=== PATIENT | male | born 1960 | race Caucasian/White ===

== ENCOUNTER 2023-03-26 07:14 | Outpatient (CLI) | payer OTHER, SELFPAY | END 2023-03-26 07:15 | disposition home or self-care (01) | LOC: INJ CL 07:14 | PROVIDERS: PCP Family Medicine; Visit Provider Family Medicine | DX: M16.11 Unilateral primary osteoarthritis, right hip (principal); M25.551 Pain in right hip | CPT/HCPCS: 20610; 77002; J0702; Q9966 ==

== ENCOUNTER 2023-04-27 12:50 | Outpatient (CLI) | payer OTHER, SELFPAY | END 2023-04-27 12:51 | disposition home or self-care (01) | LOC: INJ CL 12:50 | PROVIDERS: PCP Family Medicine; Visit Provider Family Medicine | DX: M16.11 Unilateral primary osteoarthritis, right hip (principal); M25.551 Pain in right hip | CPT/HCPCS: 20610; 77002; J0702; Q9966 ==

== ENCOUNTER 2023-07-21 13:47 | Outpatient (RCR) | payer OTHER, SELFPAY | END 2023-08-19 16:42 | disposition home or self-care (01) | PROVIDERS: PCP Family Medicine; Visit Provider Orthopaedic Surgery | DX: M16.11 Unilateral primary osteoarthritis, right hip (principal); Z51.89 Encounter for other specified aftercare | CPT/HCPCS: 97161 ==

== ENCOUNTER 2023-08-03 09:48 | Day surgery (SDC) | payer OTHER, SELFPAY ==
[2023-08-03] VITALS (24 sets, daily range): BP systolic 103–135; BP diastolic 42–84; PULSE 43–86; RESP 14–18; TEMP 35.9–36.9; O2SAT 84–100; BMI 40.2
[2023-08-03] MEDS: LACTATED RINGERS 1000 ML 1,000 ML 100 ML IV ×2 (09:00→12:54)
[2023-08-03] MEDS: ACETAMINOPHEN 500 MG TABLET 1000 MG PO ×3 (10:33→21:53)
[2023-08-03] MEDS: SODIUM CHLORIDE 0.9 % (FLUSH) 10 ML SYRINGE IVF (10:33)
[2023-08-03] MEDS: CELECOXIB 200 MG CAPSULE PO (10:33)
[2023-08-03] MEDS: OXYCODONE (CR) 10 MG TAB.ER.12H PO (10:33)
--- NOTE | 2023-08-03 10:50 | SUR.PREOP ---
TIME?OUT:?1136 PT/RN/MDA?VERIFICATION?OF?SURGICAL?SITE Right Hip,?PROCEDURE Nerve Block,?AND?CONSENT OBTAINED?PRIOR?TO?INVASIVE?PROCEDURE.
[2023-08-03] MEDS: MIDAZOLAM HCL 1 MG/ML inj IVP (11:37)
[2023-08-03] MEDS: fentaNYL 100 MCG/2 ML inj IVP (11:37)
[2023-08-03] MEDS: CEFAZOLIN 2 GM INJ IVP (12:09)
[2023-08-03] MEDS: TRANEXAMIC ACID 100 MG/ML INJ 1000 MG IV (12:11)
--- NOTE | 2023-08-03 12:15 | CRLHL7_ITS ---
For Patients: As a result of the Cures Act, medical imaging exams and procedure reports are released immediately into your electronic medical record. You may view this report before your referring provider. If you have questions, please contact your health care provider. Fluoroscopy was provided intraoperatively. Two spot films acquired demonstrating an intact right total hip arthroplasty. 67 seconds fluoroscopy time was utilized by the surgical service. Dictated by Timothy Nails MD @ 08/05/2023 5:29:55 AM (Electronically Signed)
--- NOTE | 2023-08-03 12:40 | W.PM.NB ---
Nerve Block Nerve Block Time Seen by Provider: 11:40 Date Seen: 08/03/23 Type of block requested by surgeon for post-operative analgesia: NILSON/LFCN Side: right Time out performed: Yes Verification of patient name: Yes Verification of date of : Yes Site marking: site marked Name of person performing procedure: Umair Continuous monitoring Was continuous monitoring of O2 sat, B/P, playground monitor, recorded every 15 minutes?: Yes Procedure Checklist: sterile prep, needles and gloves Ultrasound guided. Images saved: Yes Medications given in 5ml increments after negative aspiration: Ropivicaine %: 0.5 mL: 30 Needle gauge: 20 Decadron (mg): 10 Precedex (mcg): 25 Patient tolerated procedure well: Yes Additional comments: Needle noted below psoas tendon needle noted adjacent to LFCN Block Charges Block Charge (with Pro Fee): Other Periph Nerve Block Use of Ultrasound Machine for Block: Yes- US Guidance/pain block
--- NOTE | 2023-08-03 12:40 | W.ANESCHARGE ---
Anesthesia Charges Start Date/Time Anesthesia Start Date: 08/03/23 Anesthesia Start Time: 11:46 Stop Date/Time Anesthesia Stop Date: 08/03/23 Anesthesia Stop Time: 14:21
--- NOTE | 2023-08-03 13:33 | CRLHL7_ITS ---
For Patients: As a result of the Cures Act, medical imaging exams and procedure reports are released immediately into your electronic medical record. You may view this report before your referring provider. If you have questions, please contact your health care provider. INDICATION: Post operative right total hip arthroplasty TECHNIQUE: Pelvis radiograph, Hip radiograph 2 views right COMPARISON: None FINDINGS: Bone: No acute fractures or aggressive bone lesions are identified. The right iliac crest is partially excluded. Joint: A right hip arthroplasty is noted. The visualized sacroiliac joints are unremarkable in appearance. The pubic symphysis is normal in appearance. Soft tissue: Lateral subcutaneous gas and joint gas are present from recent surgery. The visualized bowel gas pattern of the pelvis is unremarkable in appearance. No radiopaque foreign bodies are seen. IMPRESSION: 1. There is an unremarkable postoperative appearance of the hip arthroplasty. Dictated by: Michael Meek MD @ 08/05/2023 13:46:47 (Electronically Signed)
--- NOTE | 2023-08-03 13:35 | P.ORPRC_ITS ---
Procedure Note Date of procedure: 08/03/23 Procedure: PREOPERATIVE DIAGNOSIS: Right hip osteoarthritis POSTOPERATIVE DIAGNOSIS: Right hip osteoarthritis NAME OF OPERATION: Right total hip arthroplasty SURGEON: Naseem Dozier MD SHAPING MACHINE TENDER: Geena Mclaughlin PA-C, ALHAJI Hutchins IMPLANTS: 1. [employer] # 56 sector ingrowth cup 2. 36 x 56 +4 neutral polyethylene 3. Actis # 5 standard collared ingrowth stem 4. 36 + 8.5 ceramic femoral head ANESTHESIA: General ESTIMATED BLOOD LOSS: 1200 cc COMPLICATIONS: None SPECIMENS: None DRAINS: None PREOPERATIVE ANTIBIOTICS: Ancef 3 grams INDICATIONS: The patient is a 63-year-old with a longstanding history of severe, unrelenting right hip pain secondary to end-stage right hip osteoarthritis. Despite appropriate nonoperative management, including activity modification, use of an assist device, anti-inflammatories, [id number] pain medication, physical therapy and injections, they continue to have pain and disability. Operative intervention was offered. The risks, benefits and expected outcomes were discussed in detail. These included but were not limited to: Infection, bleeding, injury to blood vessel or nerve, venous thromboembolism. All questions were answered to their satisfaction. Use of an funeral director's assistant was necessary throughout the case for patient positioning and safety, soft tissue retraction and closure. PROCEDURE: The patient was placed supine on the [place] table. General anesthesia was administered. The funeral director's assistant made sure the patient was properly positioned. The right hip was prepped and draped in the usual sterile fashion. The image intensifier was brought in for a perfect AP pelvis and a perfect double tear drop AP view of each hip which were used for intraoperative templating with our fluoroscopic guide. An oblique incision was made 3 cm distal and 3 cm lateral to the anterior superior iliac spine. The funeral director's assistant retracted the soft tissues to protect them. Subcutaneous dissection was taken with electrocautery to the superficial fascia. The fascia was divided in line with the incision. Blunt dissection was carried medially to the tensor fascia kassi and sartorius interval. Deep dissection was carried with electrocautery. The circumflex vessels were cauterized and divided. The capsule was exposed and then divided in a T- fashion, tagged with #1 Ethibond sutures. Retractors were placed in the joint, held by the funeral director's assistant. The corkscrew was placed in the femoral head. The neck cut was made in the subcapital region. We made a second neck cut more distal. The napkin ring of bone was removed. The femoral head was removed intact. Acetabular retractors were placed, held by the funeral director's assistant. The labrum was sharply debrided. The capsule was released. The 43 mm reamer was used to the true medial wall. We then enlarged in 2 mm increments using the image intensifier for our reamer placement. We impacted the cup which had excellent purchase. We placed the hole eliminator and the polyethylene. Attention was then turned to the proximal femur. The limb was placed in 140 degrees of external rotation, maximum extension and adduction. A significant amount of time was spent releasing the capsule to allow us to deliver the femur into the wound and complete the femoral side safely. Retractors were held by the funeral director's assistant throughout the femoral preparation. The box truck driver and canal finder were used. Broaches were used to a stable size. The calcar reamer was used. Trial components were placed. The hip was reduced and was found to be stable with appropriate soft tissue tension. Length and offset had been nicely restored using the image intensifier and our fluoroscopic guide. Trial components were removed. The stem was impacted. We placed the femoral head. Again, the hip was reduced and was found to be stable with appropriate soft tissue tension. Length and offset had been nicely restored. The funeral director's assistant did a three minute dilute Betadine solution soak. The funeral director's assistant irrigated the wound with 3 liters of normal saline via pulse lavage. The funeral director's assistant repaired the anterior capsule with a #1 Vicryl and our previously placed Ethibond sutures. The funeral director's assistant closed the fascia over the tensor fascia kassi with a #1 PDO Stratafix, subcutaneous tissues with 2-0 Vicryl, skin with a running 3-0 Stratafix and glue. A dry dressing was applied by the funeral director's assistant. Sponge and needle counts were correct x 2. The patient tolerated the procedure well; there were no apparent complications. They were awakened and extubated in the operating room, sent to the Post-Anesthesia Care Unit in satisfactory condition. PLAN: 1. The patient will be mobilized with physical therapy, weight-bearing as tolerates 2. Xarelto x 5 days then aspirin x 30 days will be used for DVT prophylaxis 3. The patient will be discharged once medically appropriate
[2023-08-03] MEDS: fentaNYL 100 MCG/2 ML inj 50 MCG IVP ×2 (14:25→14:33)
--- NOTE | 2023-08-03 14:26 | W.ANESCHARGE ---
Anesthesia Charges Start Date/Time Anesthesia Start Date: 08/03/23 Anesthesia Start Time: 11:46 Stop Date/Time Anesthesia Stop Date: 08/03/23 Anesthesia Stop Time: 14:21
[2023-08-03] MEDS: HYDROmorphone 0.5 mg/0.5 ml inj IVP ×2 (15:20→16:17)
[2023-08-03] MEDS: LACTATED RINGERS 1000 ML 1,000 ML 75 ML IV ×2 (16:17→22:48)
--- NOTE | 2023-08-03 16:27 | PM.IMCN1 ---
Date of Consult Patient: Ezra Patient Consult date: 08/03/23 Requesting Physician: Orthopedics Primary Care Provider: Faith Banuelos, Consult Narrative Reason for consult: Medical management after hip surgery Narrative: Demetrius Galicia is a 63 year old male who underwent right total hip arthroplasty today, procedure performed by Dr. Dozier. Complication of 1200 mL estimated blood loss. Postoperatively patient is reporting hip pain. He is not having any dyspnea or nausea. Nursing staff note that his O2 sat did drop into the low 80s and so he was placed on nasal cannula oxygen. Patient is suspected of having sleep apnea. He has not had a sleep study. He does have chronic insomnia for which he takes mirtazapine. Preoperatively he reports he has generally been doing well other than his hip pain. Hip pain dates back to October when he had a hip injury, slipping on the ice. He reports that he also has knee arthritis and right shoulder pain. Previous right shoulder rotator cuff repair. Reports his shoulder still bothers him. Review of Systems Narrative: No recent illness. Review of systems is unremarkable except as noted above PFSH [facility] Medical History (Updated 08/03/23 @ 16:42 by Steve Davila MD) Constipation due to opioid therapy ?K59.03 - Drug induced constipation (ICD-10) ?T40.2X5A - Adverse effect of other opioids, initial encounter (ICD-10) Sleep apnea ?G47.30 - Sleep apnea, unspecified (ICD-10) Generalized arthritis ?M19.90 - Unspecified osteoarthritis, unspecified site (ICD-10) Dyslipidemia ?E78.5 - Hyperlipidemia, unspecified (ICD-10) Pre-diabetes ?R73.03 - Prediabetes (ICD-10) Morbid obesity ?E66.01 - Morbid (severe) obesity due to excess calories (ICD-10) Depression ?F32.A - Depression, unspecified (ICD-10) Surgical History (Updated 08/03/23 @ 16:41 by Steve Davila MD) History of total right hip arthroplasty ?Z96.641 - Presence of right artificial hip joint (ICD-10) History of colonoscopy ?Z98.890 - Other specified postprocedural states (ICD-10) History of arthroscopy of right shoulder (~2015) ?Z98.890 - Other specified postprocedural states (ICD-10) History of ureter stent Family History Father Heart disease Social History (Updated 08/03/23 @ 16:36 by Steve Davila MD) Narrative: Patient lives in a [place]amb[place] in [place]. He lives with his spouse. He does not have to walk steps. His sister is healthcare power of employment law attorney. Code status is full. He does not smoke. He rarely drinks alcohol What is your current living situation?: I presently have a place to live In the past 12 months, utilities in danger of being shut off: no In past 12 months, lack of transportation kept you from medical appts, meetings, work, or getting things needed for daily living: no In the past 12 mos, have been you worried that your food would run out before you had money to buy more?: never true In the past 12 mos, the food you bought just didn't last and you didn't have money to buy more?: never true Smoking Status: Never smoker Do you use any of these nicotine containing products: None Second hand tobacco smoke exposure: No How often do you have a drink containing alcohol: never AUDIT-C Alcohol total score: 0 Non-prescribed substance use: denies use Caffeine: No How often does anyone, including family, friends and others, physically hurt you: never How often does anyone, including family, friends and others, insult or talk down to you: never How often does anyone, including family, friends and others, threaten you with harm: never How often does anyone, including family, friends and others, scream or curse at you: never Meds Home Medications and Allergies Home Medications Medication Instructions Recorded Confirmed Type atorvastatin 40 mg tablet 40 mg PO DAILY 03/17/23 08/03/23 History mirtazapine 7.5 mg tablet 3.75 - 7.5 mg PO HS 03/17/23 08/03/23 History omeprazole 20 mg capsule,delayed 20 mg PO DAILY 03/17/23 08/03/23 History release Allergies Allergy/AdvReac Type Severity Reaction Status Date / Time Sulfa (Sulfonamide AdvReac Verified 08/03/23 10:13 Antibiotics) Exam Narrative: Exam Narrative: He is alert and appears in no distress. Breathing is unlabored. He gives his own history. Oropharynx is normal except for small airway. Neck is supple without mass or adenopathy. Respirations are clear to auscultation. Cardiovascular: S1, S2, regular rate and rhythm. No murmur gallop or rub. Abdomen is soft without tenderness or mass. Is intact pulses, motion and sensation distally. Const: Vital Signs, click to edit/add: Vital Signs - 24 hr 08/03/23 10:17 08/03/23 11:35 08/03/23 11:38 Temperature 98.5 F Pulse Rate 60 44 L 46 L Respiratory Rate 16 16 16 Blood Pressure 116/69 112/67 111/65 Pulse Oximetry 96 99 99 Oxygen Delivery Me thod Room Air Nasal Cannula Nasal Cannula Oxygen Flow Rate 2 2 08/03/23 11:40 08/03/23 14:16 08/03/23 14:20 Temperature 97.4 F L Pulse Rate 43 L 81 75 Respiratory Rate 16 18 16 Blood Pressure 109/76 135/76 133/84 Pulse Oximetry 99 96 96 Oxygen Delivery Me thod Nasal Cannula Room Air Room Air Oxygen Flow Rate 2 08/03/23 14:25 08/03/23 14:30 08/03/23 14:35 Temperature 97.3 F L Pulse Rate 75 72 64 Respiratory Rate 18 16 14 Blood Pressure 127/75 117/72 120/71 Pulse Oximetry 98 97 96 Oxygen Delivery Me thod Room Air Room Air Room Air Oxygen Flow Rate 08/03/23 14:40 08/03/23 14:45 08/03/23 14:49 Temperature 97.1 F L Pulse Rate 61 56 L 62 Respiratory Rate 14 14 16 Blood Pressure 126/73 116/74 120/74 Pulse Oximetry 95 97 99 Oxygen Delivery Me thod Room Air Room Air Room Air Oxygen Flow Rate Documenting provider has reviewed patient's vital signs: yes Assessment and Plan Assessment and plan (1) History of total right hip arthroplasty: Problem comment: Performed by Dr. Dozier on 08/03/2023. Estimated 1200 mL blood loss. Monitor hemoglobin. Status: Acute (2) Sleep apnea: Problem comment: Patient reports normally sleeping on his stomach. He also reports non restorative sleep. Family reports serious snoring problems. Recommend outpatient sleep study after recovering from this surgery Status: Acute (3) Generalized arthritis: Problem comment: Patient reports bilateral knee, right hip, right shoulder arthritis pain. Generalized pain may slow recovery and delay return to normal mobility. Status: Acute (4) Morbid obesity: Problem comment: BMI is 40. Status: Acute (5) Postoperative hypoxia: Problem comment: Likely a combination of general anesthesia, opioid medicine, underlying sleep apnea. Monitor and manage during hospitalization. Status: Acute (6) Constipation due to opioid therapy: Problem comment: History of severe opioid induced constipation. Aggressive laxative treatment. Status: Acute Plan Anticipate routine postoperative care. Monitor and manage hypoxia. Total time spent today is 40 minutes, 30 minutes in coordination of care discussing with patient family and other providers management of hypoxia, pain, rehab, sleep apnea
[2023-08-03] MEDS: ONDANSETRON 2 MG/ML inj 4 MG IVP ×2 (18:27→22:18)
[2023-08-03] MEDS: OXYCODONE 5 MG TABLET PO (19:37)
[2023-08-03] MEDS: SENNOSIDES 1 TAB TABLET 2 TAB PO (21:53)
[2023-08-03] MEDS: MIRTAZAPINE 15 MG TABLET 7.5 MG PO (21:53)
[2023-08-04] MEDS: OXYCODONE 5 MG TABLET PO ×2 (00:56→08:01)
[2023-08-04 03:00] VITALS: BP 108/59; PULSE 62; RESP 20; TEMP 36.9; O2SAT 93
[2023-08-04] MEDS: ACETAMINOPHEN 500 MG TABLET 1000 MG PO (04:49)
[2023-08-04 06:26] LABS: Basophils Percent Auto 0.1 % (0.0-3.0); Hematocrit 34.3 % (37.0-53.0); Hemoglobin* 11.4 gm/dL (13.5-17.5); Immature Granulocytes Pct Auto 0.2 %; Lymphocytes Percent Auto 4.7 % (20-44); Mean Corpuscular HGB Conc 33 gm/dL (32-36); Mean Corpuscular Hemoglobin 30 pg (26-34); Mean Corpuscular Volume 91 fL (80-100); Monocytes Percent Auto 4.9 % (0.0-11.0); Neutrophils Percent Auto 90.1 % (42.0-72.0); Platelet Count* 158 K/uL (140-440); RDW Coefficient of Variation % 13.2 % (11.5-15.5); Red Blood Count 3.79 m/uL (4.30-5.90); White Blood Count* 16.16 K/uL (4.50-11.00)
[2023-08-04 06:29] LABS: Slide Review Reflex No
--- NOTE | 2023-08-04 06:48 | PC.NURSE ---
End of shift report [id number]: Alert and oriented x 4. Pain to right hip reported, pain well managed with prn medications, ice and re-positioning. At 2200 patient up to the bathroom with assist, upon arriving back to his bed and sitting on the edge at 2215 he reported feeling hot and queasy. Patients face appeared flushed and became diaphoretic, junior technical writer received assist from Sharifa SWAN and Cherelle RN after staff assist requested. Patient BP 99/59, denies lightheadedness or dizziness but nausea reported. Patient proceeded to dry heave, prn zofran administered. After 10 minutes patient reporting that he feels better. Assisted back to bed, IV fluid continued. Dr. Davila updated on episode, no new orders at this time. Patient reporting decreased sensation to urinate, had small void at 2200, bladder scan completed and showed volume of 103, 155, 197. At 0030 assisted to bathroom and large void. Ambulates with SBA with gait belt and walker.
[2023-08-04 06:58] LABS: Potassium* 4.1 mmol/L (3.6-5.1); Sodium* 137 mmol/L (135-149)
[2023-08-04 07:01] LABS: Est. Creatinine Clearance* 79.08; Estimated Glomerular Filt Rate 85 ml/min
[2023-08-04 07:02] LABS: Blood Urea Nitrogen* 17 mg/dL (7-30)
[2023-08-04 08:00] VITALS: O2SAT 96
[2023-08-04] MEDS: SENNOSIDES 1 TAB TABLET 2 TAB PO (08:00)
[2023-08-04] MEDS: ATORVASTATIN CALCIUM 40 MG TABLET PO (08:01)
[2023-08-04] MEDS: RIVAROXABAN 10 MG TABLET PO (08:01)
[2023-08-04 08:04] VITALS: BP 117/59; PULSE 60; RESP 16; TEMP 37; O2SAT 96
--- NOTE | 2023-08-04 08:48 | PM.ORPN ---
Subjective Subjective Time Seen by Provider: 07:15 Date Seen: 08/04/23 Principal diagnosis: Status post right total hip arthroplasty Interval history: Demetrius is comfortable this morning. He has been ambulating. Plan for discharge is to home with his mother and sister assisting him. He denies nausea and vomiting this morning. Ortho Exam Narrative Exam Narrative: Alert and oriented x3. Patient is in no acute distress. Converses without labored breathing. Hearing is grossly intact. Ambulates with a walker. Examination of the right hip shows dressing is intact. No erythema or warmth or sign of infection. Minimal edema. CMS intact right lower extremity. Quad strength 5/5. Bilateral calves are soft and nontender. Ice pack in place. Const Vital Signs, click to edit/add: Vital Signs - 24 hr 08/03/23 10:17 08/03/23 11:35 08/03/23 11:38 Temperature 98.5 F Pulse Rate 60 44 L 46 L Pulse Rate [Pulse Oximeter] Respiratory Rate 16 16 16 Blood Pressure 116/69 112/67 111/65 Blood Pressure [Left Arm] Pulse Oximetry 96 99 99 Oxygen Delivery Method Room Air Nasal Cannula Nasal Cannula Oxygen Flow Rate 2 2 08/03/23 11:40 08/03/23 14:16 08/03/23 14:20 Temperature 97.4 F L Pulse Rate 43 L 81 75 Pulse Rate [Pulse Oximeter] Respiratory Rate 16 18 16 Blood Pressure 109/76 135/76 133/84 Blood Pressure [Left Arm] Pulse Oximetry 99 96 96 Oxygen Delivery Method Nasal Cannula Room Air Room Air Oxygen Flow Rate 2 08/03/23 14:25 08/03/23 14:30 08/03/23 14:35 Temperature 97.3 F L Pulse Rate 75 72 64 Pulse Rate [Pulse Oximeter] Respiratory Rate 18 16 14 Blood Pressure 127/75 117/72 120/71 Blood Pressure [Left Arm] Pulse Oximetry 98 97 96 Oxygen Delivery Method Room Air Room Air Room Air Oxygen Flow Rate 08/03/23 14:40 08/03/23 14:45 08/03/23 14:49 Temperature 97.1 F L Pulse Rate 61 56 L 62 Pulse Rate [Pulse Oximeter] Respiratory Rate 14 14 16 Blood Pressure 126/73 116/74 120/74 Blood Pressure [Left Arm] Pulse Oximetry 95 97 99 Oxygen Delivery Method Room Air Room Air Room Air Oxygen Flow Rate 08/03/23 15:00 08/03/23 15:15 08/03/23 15:30 Temperature 96.8 F L 96.6 F L 97 F L Pulse Rate 58 L Pulse Rate [Pulse Oximeter] 48 L 51 L Respiratory Rate 16 16 16 Blood Pressure Blood Pressure [Left Arm] 103/56 L 108/62 104/59 L Pulse Oximetry 100 84 L Oxygen Delivery Method Room Air Room Air Room Air Oxygen Flow Rate 08/03/23 15:45 08/03/23 16:00 08/03/23 16:30 Temperature 97.1 F L 97.0 F L Pulse Rate Pulse Rate [Pulse Oximeter] 54 L 53 L 53 L Respiratory Rate 16 16 16 Blood Pressure Blood Pressure [Left Arm] 106/65 110/67 110/67 Pulse Oximetry 98 99 98 Oxygen Delivery Method Room Air Nasal Cannula Nasal Cannula Oxygen Flow Rate 2 2 2 08/03/23 17:00 08/03/23 18:00 08/03/23 19:00 Temperature 97.4 F L 97 F L Pulse Rate Pulse Rate [Pulse Oximeter] 61 59 L 66 Respiratory Rate 16 16 16 Blood Pressure Blood Pressure [Left Arm] 118/73 130/70 126/83 Pulse Oximetry 97 97 96 Oxygen Delivery Method Nasal Cannula Nasal Cannula Nasal Cannula Oxygen Flow Rate 2 2 2 08/03/23 20:00 08/03/23 21:00 08/03/23 23:00 Temperature 97.6 F 97.7 F Pulse Rate Pulse Rate [Pulse Oximeter] 86 86 Respiratory Rate 16 18 Blood Pressure Blood Pressure [Left Arm] 119/76 126/73 Pulse Oximetry 97 97 98 Oxygen Delivery Method Room Air Room Air Room Air Oxygen Flow Rate 08/03/23 23:00 08/04/23 03:00 08/04/23 08:00 Temperature 97.9 F 98.4 F Pulse Rate Pulse Rate [Pulse Oximeter] 65 62 Respiratory Rate 16 20 Blood Pressure Blood Pressure [Left Arm] 107/42 L 108/59 L Pulse Oximetry 97 93 96 Oxygen Delivery Method Room Air Room Air Room Air Oxygen Flow Rate 08/04/23 08:04 Temperature 98.6 F Pulse Rate Pulse Rate [Pulse Oximeter] 60 Respiratory Rate 16 Blood Pressure Blood Pressure [Left Arm] 117/59 L Pulse Oximetry 96 Oxygen Delivery Method Room Air Oxygen Flow Rate Assessment and Plan Assessment and plan (1) History of total right hip arthroplasty: Problem details: Performed by Dr. Dozier on 08/03/2023. Estimated 1200 mL blood loss. Monitor hemoglobin. Status: Acute (2) Sleep apnea: Problem details: Patient reports normally sleeping on his stomach. He also reports non restorative sleep. Family reports serious snoring problems. Recommend outpatient sleep study after recovering from this surgery Status: Acute (3) Generalized arthritis: Problem details: Patient reports bilateral knee, right hip, right shoulder arthritis pain. Generalized pain may slow recovery and delay return to normal mobility. Status: Acute (4) Morbid obesity: Problem details: BMI is 40. Status: Acute (5) Postoperative hypoxia: Problem details: Likely a combination of general anesthesia, opioid medicine, underlying sleep apnea. Monitor and manage during hospitalization. Status: Acute (6) Constipation due to opioid therapy: Problem details: History of severe opioid induced constipation. Aggressive laxative treatment. Status: Acute Plan Plan for discharge is today to home if they meet discharge criteria. DVT prophylaxis includes Xarelto 10 mg daily for total of 5 days, then aspirin 81 mg twice daily for 30 days, Florentin stockings x1 month may remove for 1 hr per day, frequent ambulation Remove dressing 1 week. Observe wound and phone Orthopedics with any questions or concerns Use Ice on operative hip unrestricted. Return to clinic in 1 week with PA for a wound check Return to clinic in 6 weeks with surgeon Minimize narcotic use. Wean off and discontinue soon as possible. Activities as tolerated. No strenuous activity. Attend outpt PT
--- NOTE | 2023-08-04 12:26 | PC.NURSE ---
Discharge note: The patient discharged home with his sister and mother this AM @ 1040... Iv was removed from his right hand... All discharge paperwork was reviewed regarding follow up, pain medications, icing, elevation and signs of infection. All questions were answered. Follow up is scheduled and recommendation was made to follow up with primary care for sleep study. Active Ice was sent home with the patient as well.
== END 2023-08-04 10:40 | disposition home or self-care (01) ==
LOC: OR 09:49 → MEDSURG 09:52
PROVIDERS: PCP Family Medicine; Visit Provider Orthopaedic Surgery
PROC: (CPT 27130; principal; 2023-08-03 12:15)
DX: M16.11 Unilateral primary osteoarthritis, right hip (principal); G89.18 Other acute postprocedural pain; R09.02 Hypoxemia; G47.30 Sleep apnea, unspecified; K59.03 Drug induced constipation; T40.2X5A Adverse effect of other opioids, initial encounter; E66.01 Morbid (severe) obesity due to excess calories; Z68.41 Body mass index [BMI] 40.0-44.9, adult; F51.04 Psychophysiologic insomnia
CPT/HCPCS: 27130; 01214; 36415; 64450; 73501; 76000; 76942; 82565; 84132; 84295; 84520; 85025; 97110; 97116; 97161; 97165; 97535; A9270; C1776; J0330; J0690; J1100; J1170; J2250; J2371; J2405; J2704; J2795; J3010; J3490; J7120

== ENCOUNTER 2025-09-18 09:06 | Outpatient (CLI) | payer OTHER, SELFPAY | END 2025-09-18 09:07 | disposition home or self-care (01) | LOC: INJ CL 09:07 | PROVIDERS: PCP Family Medicine; Visit Provider Family Medicine | DX: M16.12 Unilateral primary osteoarthritis, left hip (principal); M25.552 Pain in left hip | CPT/HCPCS: 20610; 77002; J0702; Q9966 ==